=== PATIENT | male | born 1975 | race Caucasian/White ===

== ENCOUNTER 2023-11-15 04:59 | Emergency (ER) | payer BC ==
[~2023-11-15] VITALS: Ht 182.9 cm; Wt 95.2 kg
[2023-11-15] MEDS ORDERED: Ketorolac Tromethamine 30mg Vial IV ONE (06:00)
[2023-11-15] MEDS ORDERED: ACYC800 PO (06:25)
[2023-11-15] MEDS ORDERED: Mupirocin22 GM TOP (06:25)
[2023-11-15] MEDS ORDERED: HYDROcodone 5-APAP 325 TAB PO ONE (07:10)
[2023-11-23] MEDS ORDERED: Percocet 5-3251 EACH PO (09:56)
== END 2023-11-15 07:24 | disposition home or self-care (01) ==
LOC: ER 04:59
DX: G51.0 Bell's palsy (principal); R59.0 Localized enlarged lymph nodes; K21.9 Gastro-esophageal reflux disease without esophagitis; Z85.528 Personal history of other malignant neoplasm of kidney; Z90.5 Acquired absence of kidney
CPT/HCPCS: 70450; 93005; 93010; 96374; 99284-25; A9270; J1885

== ENCOUNTER 2023-11-19 18:59 | Emergency (ER) | payer BC ==
[~2023-11-19] VITALS: Ht 182.9 cm; Wt 95.2 kg
[~2023-11-19 18:59] MED LIST: ACYC800 PO; Mupirocin22 GM TOP
[2023-11-19 19:12] LABS: BASOPHILS ABSOLUTE AUTO 0.09 K/mm3 (0.00-0.23); BASOPHILS PERCENT AUTO 1 % (0-2); EOSINOPHILS ABSOLUTE AUTO 0.37 K/mm3 (0.00-0.68); EOSINOPHILS PERCENT AUTO 5 % (0-6); Hematocrit 49.2 % (37.0-53.0); Hemoglobin 16.6 g/dL (13.5-17.5); IMMATURE GRAN ABSOLUTE AUTO 0.05 K/mm3 (0.00-0.10); IMMATURE GRAN PERCENT AUTO 1 % (0-1); LYMPHOCYTES ABSOLUTE AUTO 2.81 K/mm3 (0.84-5.20); LYMPHOCYTES PERCENT AUTO 34 % (21-46); MONOCYTES ABSOLUTE AUTO 1.06 K/mm3 (0.16-1.47); MONOCYTES PERCENT AUTO 13 % (4-13); Mean Corpuscular HGB 29.5 pg (26.0-34.0); Mean Corpuscular HGB Conc 33.7 g/dL (31.5-36.5); Mean Corpuscular Volume 87 fL (80-100); Mean Platelet Volume 10.9 fL (9.1-12.4); NEUTROPHILS ABSOLUTE AUTO 3.91 K/mm3 (1.96-9.15); NEUTROPHILS PERCENT AUTO 47 % (41-73); Platelet Count 245 K/mm3 (150-400); RDW Coefficient Variation 12.8 % (11.7-14.2); RDW Standard Deviation 41.1 fL (35.1-46.3); Red Blood Cell Count 5.63 M/mm3 (4.30-5.90); White Blood Cell Count 8.29 K/mm3 (4.00-11.30)
[2023-11-19 19:35] LABS: Albumin, Blood 3.8 g/dL (3.4-5.0); Albumin/Globulin Ratio 0.8 (0.8-1.8); Bilirubin, Total 0.6 mg/dL (0.1-1.0); Bun/Creatinine Ratio 15.4 (12.0-20.0); Calcium, Blood 9.1 mg/dL (8.5-10.1); Creatinine, Blood 1.04 mg/dL (0.60-1.20); Globulin, Blood 4.6 g/dL (2.2-4.0); Potassium, Blood 5.3 mmol/L (3.5-5.5); Total Protein, Blood 8.4 g/dL (6.4-8.2)
[2023-11-19] MEDS ORDERED: Metoclopramide HCl 5MG / ML 2ML Vial IV ONE (20:10)
[2023-11-19] MEDS ORDERED: NS 1,000 ML IV SCH (20:10)
[2023-11-19] MEDS ORDERED: Ketorolac Tromethamine 30mg Vial IV ONE (20:10)
[2023-11-19] MEDS ORDERED: HYDROmorphone HCl/Pf 1MG SYR IV ONE (20:10)
[2023-11-19] MEDS ORDERED: Percocet 5-3251 EACH PO (20:39)
[2023-11-19] MEDS ORDERED: ONDA4ODT MM (20:39)
[2023-11-19] MEDS ORDERED: RX Prepack 6 Tabs Oxycodone 5mg UD ONE (20:40)
[2023-11-19] MEDS ORDERED: RX Prepack 2 Tabs Ondansetron ODT 4MG UD ONE (20:40)
[2023-11-23] MEDS ORDERED: Percocet 5-3251 EACH PO (09:56)
== END 2023-11-19 21:34 | disposition home or self-care (01) ==
LOC: ER 18:59
PROVIDERS: Physician Assistant
DX: G51.0 Bell's palsy (principal); R51.9 Headache, unspecified; Z79.899 Other long term (current) drug therapy; K21.9 Gastro-esophageal reflux disease without esophagitis
CPT/HCPCS: 70450; 80053; 85025; 93005; 93010; 96374; 96375; 99285-25; A9270; J1170; J1885; J2765; J7030